=== PATIENT | female | born 1955 | race African-American/Black ===

== ENCOUNTER 2017-02-25 09:22 | Inpatient (IN) | payer MEDICAID ==
[~2017-02-25] VITALS: Ht 152.4 cm; Wt 105.9 kg
[~2017-02-25 09:22] MED LIST: ATOR20TA PO; FLUT0.0535 NAS; GABA-497 PO; GEMF600T3 PO; HYDR-2601 PO; LORA-352 PO; NEOM1SOL13 OT; OMEP20TA85 PO; ONDA4TAB5 PO; PREDSUS OR
[2017-02-25] MEDS ORDERED: IPRATROPIUM BROM 0.5 MG/2.5ML INH SOL HHN ONE (10:30)
[2017-02-25] MEDS ORDERED: LEVOFLOXACIN 500MG 100 ML IV ONE (10:30)
[2017-02-25] MEDS ORDERED: methylPREDNISolone SOD SUCC 125 MG/2 ML VL IV ONE (10:30)
[2017-02-25] MEDS ORDERED: ALBUTEROL SULF 2.5 MG/0.5ML(0.5%) NEB SOLN HHN ONE (10:30)
[2017-02-25 12:28] LABS: Anion Gap 7 (5-15); Blood Urea Nitrogen 15 mg/dL (7-18); Carbon Dioxide 25 mmol/L (21-32); Chloride 108 mmol/L (98-107); Glucose 95 mg/dL (74-106); Sodium 140 mmol/L (136-145)
[2017-02-25 12:29] LABS: Albumin 3.3 g/dL (3.4-5.0); Alkaline Phosphatase 95 U/L (45-117); Aspartate Aminotransferase 10 U/L (15-37); BUN/Creatinine Ratio 14.7; Bilirubin, Total 0.4 mg/dL (0.2-1.0); Calcium 8.5 mg/dL (8.5-10.1); GFR African American 71 mL/min; GFR Non-African American 59 mL/min; Magnesium 2.3 mg/dL (1.6-2.6); Total Protein 7.3 g/dL (6.4-8.2)
[2017-02-25 12:30] LABS: B-Type Natriuretic Peptide 226.67 pg/mL (0-100)
[2017-02-25] MEDS ORDERED: ACETAMINOPHEN 325 MG TAB PO ONE (12:30)
[2017-02-25 12:31] LABS: Temperature: 21.9 C (20.0-25.0)
[2017-02-25 12:33] LABS: Basophils % (auto) 0.3 % (0.0-2.0); Lymphocytes % (auto) 9.4 % (10.0-50.0); Monocytes % (auto) 6.2 % (0.0-12.0); Neutrophils % (auto) 84.1 % (37.0-80.0); White Blood Cell 26.9 10^3/uL (4.4-10.8)
[2017-02-25 12:34] LABS: Basophils # (auto) 0.1 uL; Eosinophils # (auto) 0 uL; Lymphocytes # (auto) 2.5 uL; Monocytes # (auto) 1.7 uL; Neutrophils # (auto) 22.6 uL
[2017-02-25 12:35] LABS: Hematocrit 38.8 % (36.0-46.0); Hemoglobin 12.8 g/dL (12.2-16.2); Mean Corpuscular Hemoglobin 31.1 pg (28.0-32.0); Mean Corpuscular Volume 94.1 fL (80.0-100.0); Mean Platelet Volume 9.5 fL (6.9-10.8); Platelet Count (auto) 215 10^3/uL (140-450); Red Cell Distribution Width 14.9 % (11.8-14.3)
[2017-02-25] MEDS ORDERED: IOHEXOL 350 MG/ML 100ML IJ ONE (13:12)
[2017-02-25] MEDS ORDERED: MORPHINE SULF INJ 2 MG/ML SYRINGE 1ML IV PRN (13:15)
[2017-02-25] MEDS ORDERED: ACETAMINOPHEN 500 MG TAB PO PRN (13:15)
[2017-02-25] MEDS ORDERED: ALBUTEROL SULF 2.5 MG/0.5ML(0.5%) NEB SOLN NEB PRN (13:15)
[2017-02-25] MEDS ORDERED: VANCOMYCIN PER PHARMACY 0 MG IV SCH (13:15)
[2017-02-25] MEDS ORDERED: NITROGLYCERIN 0.4 MG SL TAB SL PRN (13:15)
[2017-02-25] MEDS ORDERED: LORazepam 0.5 MG TAB PO PRN (13:15)
[2017-02-25 13:29] VITALS: BP 125/77
[2017-02-25] MEDS ORDERED: VANCOMYCIN 1GM/250ML 250 ML IV ONE (14:00)
[2017-02-25] MEDS: SODIUM CHLORIDE 0.9% 1,000 ML IV SCH (14:38)
[2017-02-25] MEDS: METOPROLOL TARTRATE 25 MG TAB PO SCH ×2 (14:41→22:00)
[2017-02-25] MEDS: ENOXAPARIN SOD 40 MG/0.4 ML SYRINGE SC SCH (14:42)
[2017-02-25] MEDS: ASPirin 81 mg TAB PO SCH (14:42)
[2017-02-25] MEDS: PROMETHAZINE HCL 25 MG/ML 1ML IV PRN (14:56)
[2017-02-25] MEDS ORDERED: methylPREDNISolone SOD SUCC 40 MG/ML VL IV SCH (16:00)
[2017-02-25] MEDS ORDERED: ERTAPENEM SOD INJ 1 GM in SODIUM CHL 0.9% 50 ML IV ONE (16:30)
[2017-02-25] MEDS ORDERED: AZITHROMYCIN 500MG/ 250ML 250 ML IV ONE (16:30)
[2017-02-25 17:09] LABS: Urine Bilirubin Negative (Negative); Urine Blood 3+ /uL (Negative); Urine Color Yellow (Yellow); Urine Glucose Normal (Normal); Urine Ketone Negative (Negative); Urine Nitrite POSITIVE (Negative); Urine RBC 40 /hpf (0 - 4); Urine Urobilinogen Normal (Negative); Urine pH 5.5 (5.0-8.0)
[2017-02-25] MEDS: IPRATROPIUM BROM 0.5 MG/2.5ML INH SOL NEB SCH (18:55)
[2017-02-25] MEDS: ALBUTEROL SULF 2.5 MG/0.5ML(0.5%) NEB SOLN NEB SCH (18:55)
[2017-02-25 20:20] VITALS: BP 132/80
[2017-02-25 20:56] LABS: Allen Test Modified; Base Excess -3.4 mmol/L (-2.0-2.0); Blood 02Sat 94.9 % (96-100); Blood COHb 0.3 % (0.5-1.5); Blood MetHb 0.3 % (0.0-1.5); HCO3 22.4 mmol/L (22-26.0); HHb 5.1 % (0.0-5.0); MODE NASAL CANNULA; O2Hb 94.3 % (94.0-97.0); PO2 82.8 mmHg (80.0-100.0); PO2(T) 82.8 mmHg (80.0-100.0); Room 1020-ERT; Sample Type Arterial; pH 7.334 (7.350-7.450)
[2017-02-25] MEDS: ATORVASTATIN 20 MG TAB PO SCH (23:10)
[2017-02-26] VITALS: BP 141/88
[2017-02-26] MEDS: ALBUTEROL SULF 2.5 MG/0.5ML(0.5%) NEB SOLN NEB SCH ×4 (00:40→19:00)
[2017-02-26] MEDS: IPRATROPIUM BROM 0.5 MG/2.5ML INH SOL NEB SCH ×4 (00:40→19:00)
[2017-02-26] MEDS: VANCOMYCIN 1GM/250ML 250 ML IV SCH ×2 (02:00→14:42)
[2017-02-26] MEDS: SODIUM CHLORIDE 0.9% 1,000 ML IV SCH ×2 (02:34→14:42)
[2017-02-26 04:00] VITALS: BP 138/80
[2017-02-26 05:22] LABS: Basophils # (auto) 0.1 uL; Basophils % (auto) 0.3 % (0.0-2.0); Eosinophils # (auto) 0 uL; Eosinophils % (auto) 0.1 % (0.0-7.0); Hematocrit 37.9 % (36.0-46.0); Hemoglobin 12.6 g/dL (12.2-16.2); Lymphocytes # (auto) 1.1 uL; Mean Corpuscular Hemoglobin 31.2 pg (28.0-32.0); Mean Corpuscular Hgb Conc. 33.1 g/dL (32.0-36.0); Mean Corpuscular Volume 94.1 fL (80.0-100.0); Mean Platelet Volume 8.1 fL (6.9-10.8); Monocytes % (auto) 3.8 % (0.0-12.0); Neutrophils # (auto) 25.2 uL; Neutrophils % (auto) 91.8 % (37.0-80.0); Nucleated Red Blood Cells % 0.2 %; Platelet Count (auto) 210 10^3/uL (140-450); Red Cell Distribution Width 15.4 % (11.8-14.3); White Blood Cell 27.4 10^3/uL (4.4-10.8)
[2017-02-26 05:49] LABS: Albumin 2.9 g/dL (3.4-5.0); Alkaline Phosphatase 91 U/L (45-117); Anion Gap 7 (5-15); Aspartate Aminotransferase 5 U/L (15-37); BUN/Creatinine Ratio 15.3; Bilirubin, Total 0.2 mg/dL (0.2-1.0); Blood Urea Nitrogen 15 mg/dL (7-18); Calcium 8.9 mg/dL (8.5-10.1); Carbon Dioxide 25 mmol/L (21-32); Chloride 106 mmol/L (98-107); Cholesterol 202 mg/dL (< 200); GFR African American 75 mL/min; GFR Non-African American 62 mL/min; Glucose 159 mg/dL (74-106); HDL Cholesterol 62 mg/dL (40-59); LDL Cholesterol 120 mg/dL (< 100); Potassium 3.8 mmol/L (3.5-5.1); Sodium 138 mmol/L (136-145); Total Protein 7.4 g/dL (6.4-8.2); Triglycerides 115 mg/dL (< 150)
[2017-02-26 08:00] VITALS: BP 142/82
[2017-02-26] MEDS ORDERED: LEVOFLOXACIN 500MG 100 ML IV SCH (10:00)
[2017-02-26] MEDS: ASPirin 81 mg TAB PO SCH (10:50)
[2017-02-26] MEDS: ERTAPENEM SOD INJ 1 GM in SODIUM CHL 0.9% 50 ML IV SCH (10:50)
[2017-02-26] MEDS: PANTOPRAZOLE 40 MG TAB PO SCH (10:51)
[2017-02-26] MEDS: METOPROLOL TARTRATE 25 MG TAB PO SCH ×2 (10:51→21:53)
[2017-02-26] MEDS: AZITHROMYCIN 500MG/ 250ML 250 ML IV SCH (10:52)
[2017-02-26] MEDS: ENOXAPARIN SOD 40 MG/0.4 ML SYRINGE SC SCH (10:52)
[2017-02-26 12:00] VITALS: BP 138/72
[2017-02-26 16:00] VITALS: BP 138/79
[2017-02-26] MEDS: PROMETHAZINE W/CODEINE 5 ML ORAL SYRUP PO PRN (18:01)
[2017-02-26 19:57] VITALS: BP 143/73
[2017-02-26] MEDS: ATORVASTATIN 20 MG TAB PO SCH (21:53)
[2017-02-27] VITALS (7 sets, daily range): BP systolic 125–154; BP diastolic 65–85
[2017-02-27] MEDS: ALBUTEROL SULF 2.5 MG/0.5ML(0.5%) NEB SOLN NEB SCH ×4 (00:16→20:07)
[2017-02-27] MEDS: IPRATROPIUM BROM 0.5 MG/2.5ML INH SOL NEB SCH ×4 (00:16→20:07)
[2017-02-27] MEDS: PROMETHAZINE W/CODEINE 5 ML ORAL SYRUP PO PRN ×4 (01:08→22:31)
[2017-02-27] MEDS: VANCOMYCIN 1GM/250ML 250 ML IV SCH ×2 (03:55→15:39)
[2017-02-27] MEDS: SODIUM CHLORIDE 0.9% 1,000 ML IV SCH ×2 (05:12→15:39)
[2017-02-27] MEDS: PROMETHAZINE HCL 25 MG/ML 1ML IV PRN (08:30)
[2017-02-27 08:45] LABS: Basophils # (auto) 0.2 uL; Basophils % (auto) 1.1 % (0.0-2.0); Eosinophils # (auto) 0.1 uL; Eosinophils % (auto) 0.9 % (0.0-7.0); Hematocrit 38.4 % (36.0-46.0); Hemoglobin 12.7 g/dL (12.2-16.2); Lymphocytes # (auto) 1.6 uL; Lymphocytes % (auto) 9.6 % (10.0-50.0); Mean Corpuscular Hemoglobin 31.1 pg (28.0-32.0); Mean Corpuscular Volume 94.1 fL (80.0-100.0); Mean Platelet Volume 8.8 fL (6.9-10.8); Monocytes # (auto) 0.7 uL; Monocytes % (auto) 4.4 % (0.0-12.0); Neutrophils # (auto) 13.9 uL; Nucleated Red Blood Cells % 0.1 %; Platelet Count (auto) 244 10^3/uL (140-450); Red Cell Distribution Width 15.5 % (11.8-14.3); White Blood Cell 16.5 10^3/uL (4.4-10.8)
[2017-02-27 08:59] LABS: BUN/Creatinine Ratio 23.5; Calcium 8.9 mg/dL (8.5-10.1)
[2017-02-27 09:02] LABS: Bilirubin, Total 0.2 mg/dL (0.2-1.0); Total Protein 6.9 g/dL (6.4-8.2)
[2017-02-27] MEDS: ERTAPENEM SOD INJ 1 GM in SODIUM CHL 0.9% 50 ML IV SCH (10:23)
[2017-02-27] MEDS: ENOXAPARIN SOD 40 MG/0.4 ML SYRINGE SC SCH (10:24)
[2017-02-27] MEDS: PANTOPRAZOLE 40 MG TAB PO SCH (10:24)
[2017-02-27] MEDS: ASPirin 81 mg TAB PO SCH (10:24)
[2017-02-27] MEDS: METOPROLOL TARTRATE 25 MG TAB PO SCH ×2 (10:25→22:27)
[2017-02-27] MEDS: AZITHROMYCIN 500MG/ 250ML 250 ML IV SCH (11:00)
[2017-02-27] MEDS: ATORVASTATIN 20 MG TAB PO SCH (22:09)
[2017-02-28] MEDS: IPRATROPIUM BROM 0.5 MG/2.5ML INH SOL NEB SCH ×4 (00:24→18:00)
[2017-02-28] MEDS: ALBUTEROL SULF 2.5 MG/0.5ML(0.5%) NEB SOLN NEB SCH ×4 (00:24→18:00)
[2017-02-28 03:52] VITALS: BP 143/78
[2017-02-28] MEDS: VANCOMYCIN 1GM/250ML 250 ML IV SCH ×2 (04:03→16:06)
[2017-02-28 05:17] LABS: Basophils # (auto) 0.1 uL; Basophils % (auto) 0.7 % (0.0-2.0); Eosinophils # (auto) 0.3 uL; Eosinophils % (auto) 2.5 % (0.0-7.0); Hematocrit 37.4 % (36.0-46.0); Hemoglobin 12.2 g/dL (12.2-16.2); Lymphocytes # (auto) 2.6 uL; Lymphocytes % (auto) 21.3 % (10.0-50.0); Mean Corpuscular Hemoglobin 30.8 pg (28.0-32.0); Mean Corpuscular Hgb Conc. 32.6 g/dL (32.0-36.0); Mean Corpuscular Volume 94.6 fL (80.0-100.0); Mean Platelet Volume 8.4 fL (6.9-10.8); Monocytes # (auto) 0.9 uL; Neutrophils # (auto) 8.4 uL; Neutrophils % (auto) 68.5 % (37.0-80.0); Nucleated Red Blood Cells % 0.3 %; Platelet Count (auto) 234 10^3/uL (140-450); Red Cell Distribution Width 15.7 % (11.8-14.3); White Blood Cell 12.2 10^3/uL (4.4-10.8)
[2017-02-28 05:49] LABS: Potassium 4.3 mmol/L (3.5-5.1)
[2017-02-28 05:53] LABS: Albumin 2.7 g/dL (3.4-5.0); BUN/Creatinine Ratio 21.9; Calcium 8.5 mg/dL (8.5-10.1)
[2017-02-28 05:55] LABS: Bilirubin, Total 0.2 mg/dL (0.2-1.0); Total Protein 6.4 g/dL (6.4-8.2)
[2017-02-28 08:00] VITALS: BP 155/61
[2017-02-28] MEDS: ERTAPENEM SOD INJ 1 GM in SODIUM CHL 0.9% 50 ML IV SCH (10:10)
[2017-02-28] MEDS: ASPirin 81 mg TAB PO SCH (10:12)
[2017-02-28] MEDS: PANTOPRAZOLE 40 MG TAB PO SCH (10:12)
[2017-02-28] MEDS: ENOXAPARIN SOD 40 MG/0.4 ML SYRINGE SC SCH (10:13)
[2017-02-28] MEDS: METOPROLOL TARTRATE 25 MG TAB PO SCH ×2 (10:13→20:58)
[2017-02-28] MEDS: PROMETHAZINE W/CODEINE 5 ML ORAL SYRUP PO PRN ×2 (10:18→21:00)
[2017-02-28] MEDS: AZITHROMYCIN 500MG/ 250ML 250 ML IV SCH (11:28)
[2017-02-28 11:49] VITALS: BP 123/65
[2017-02-28 15:51] VITALS: BP 123/65
[2017-02-28 16:03] VITALS: BP 157/89
[2017-02-28] MEDS ORDERED: CARI-277 PO (17:38)
[2017-02-28] MEDS ORDERED: LORA-622 PO (17:38)
[2017-02-28] MEDS ORDERED: CHOL20009 PO (17:38)
[2017-02-28] MEDS ORDERED: CHOL500021 OR (17:38)
[2017-02-28 19:50] VITALS: BP 147/72
[2017-02-28] MEDS: ATORVASTATIN 20 MG TAB PO SCH (20:59)
[2017-02-28] MEDS: TEMAZEPAM 15 MG CAP PO PRN (21:00)
[2017-03-01] VITALS: BP 168/93
[2017-03-01] MEDS: ALBUTEROL SULF 2.5 MG/0.5ML(0.5%) NEB SOLN NEB SCH ×5 (01:12→23:47)
[2017-03-01] MEDS: IPRATROPIUM BROM 0.5 MG/2.5ML INH SOL NEB SCH ×5 (01:12→23:47)
[2017-03-01 02:00] VITALS: BP 152/80
[2017-03-01] MEDS: VANCOMYCIN 1GM/250ML 250 ML IV SCH (04:00)
[2017-03-01 05:40] LABS: Basophils # (auto) 0.1 uL; Basophils % (auto) 1.1 % (0.0-2.0); Eosinophils # (auto) 0.3 uL; Eosinophils % (auto) 2.6 % (0.0-7.0); Hematocrit 37.7 % (36.0-46.0); Hemoglobin 12.7 g/dL (12.2-16.2); Lymphocytes # (auto) 2.1 uL; Lymphocytes % (auto) 20.4 % (10.0-50.0); Mean Corpuscular Hemoglobin 31.6 pg (28.0-32.0); Mean Corpuscular Hgb Conc. 33.8 g/dL (32.0-36.0); Mean Corpuscular Volume 93.4 fL (80.0-100.0); Mean Platelet Volume 7.7 fL (6.9-10.8); Monocytes # (auto) 0.7 uL; Monocytes % (auto) 6.8 % (0.0-12.0); Neutrophils % (auto) 69.1 % (37.0-80.0); Nucleated Red Blood Cells % 0.3 %; Platelet Count (auto) 261 10^3/uL (140-450); Red Cell Distribution Width 14.7 % (11.8-14.3); White Blood Cell 10.1 10^3/uL (4.4-10.8)
[2017-03-01 06:03] LABS: Calcium 8.5 mg/dL (8.5-10.1)
[2017-03-01] MEDS: PROMETHAZINE W/CODEINE 5 ML ORAL SYRUP PO PRN ×3 (07:03→22:09)
[2017-03-01] MEDS: ERTAPENEM SOD INJ 1 GM in SODIUM CHL 0.9% 50 ML IV SCH (09:44)
[2017-03-01] MEDS: PANTOPRAZOLE 40 MG TAB PO SCH (09:46)
[2017-03-01] MEDS: ASPirin 81 mg TAB PO SCH (09:46)
[2017-03-01] MEDS: METOPROLOL TARTRATE 25 MG TAB PO SCH ×2 (09:47→21:28)
[2017-03-01] MEDS: ENOXAPARIN SOD 40 MG/0.4 ML SYRINGE SC SCH (09:48)
[2017-03-01] MEDS: AZITHROMYCIN 500MG/ 250ML 250 ML IV SCH (11:10)
[2017-03-01] MEDS: SODIUM CHLORIDE 0.9% 1,000 ML IV SCH ×3 (11:14→21:29)
[2017-03-01 12:00] VITALS: BP 158/93
[2017-03-01 16:40] VITALS: BP 159/86
[2017-03-01] MEDS: MORPHINE SULF INJ 2 MG/ML SYRINGE 1ML IV PRN (17:44)
[2017-03-01 21:14] VITALS: BP 145/57
[2017-03-01] MEDS: ATORVASTATIN 20 MG TAB PO SCH (21:27)
[2017-03-01] MEDS: TEMAZEPAM 15 MG CAP PO PRN (22:09)
[2017-03-01] MEDS ORDERED: HYDROcodone-ACET 5/325MG TAB PO PRN (23:30)
[2017-03-02] MEDS: MORPHINE SULF INJ 2 MG/ML SYRINGE 1ML IV PRN ×2 (02:00→21:01)
[2017-03-02 05:26] VITALS: BP 155/84
[2017-03-02] MEDS: GABAPENTIN 300 MG CAP PO SCH ×3 (06:16→21:01)
[2017-03-02] MEDS: CARISOPRODOL 350 MG TAB PO SCH ×3 (06:16→21:02)
[2017-03-02] MEDS: PROMETHAZINE HCL 25 MG/ML 1ML IV PRN (06:51)
[2017-03-02] MEDS: HYDROcodone-ACET 5/325MG TAB PO PRN ×2 (06:52→14:27)
[2017-03-02] MEDS: ALBUTEROL SULF 2.5 MG/0.5ML(0.5%) NEB SOLN NEB SCH ×3 (07:12→19:03)
[2017-03-02] MEDS: IPRATROPIUM BROM 0.5 MG/2.5ML INH SOL NEB SCH ×3 (07:12→19:03)
[2017-03-02 07:50] VITALS: BP 143/66
[2017-03-02] MEDS: cefTRIAXone 1GM/50ML D5W 50 ML IV SCH (09:00)
[2017-03-02] MEDS: ASPirin 81 mg TAB PO SCH (10:00)
[2017-03-02] MEDS: AZITHROMYCIN 250 MG TAB PO SCH (10:00)
[2017-03-02] MEDS: CHOLECALCIFEROL (VITD3) 1,000 UNIT TAB PO SCH (10:00)
[2017-03-02] MEDS: PANTOPRAZOLE 40 MG TAB PO SCH (10:00)
[2017-03-02] MEDS: FAMOTIDINE 20 MG TAB PO SCH (10:00)
[2017-03-02] MEDS: ENOXAPARIN SOD 40 MG/0.4 ML SYRINGE SC SCH (10:00)
[2017-03-02] MEDS: LORATADINE 10 MG TAB PO SCH (10:00)
[2017-03-02] MEDS: METOPROLOL TARTRATE 25 MG TAB PO SCH ×2 (10:00→21:02)
[2017-03-02 12:29] VITALS: BP 152/79
[2017-03-02] MEDS: SODIUM CHLORIDE 0.9% 1,000 ML IV SCH (13:12)
[2017-03-02 15:00] LABS: INR 1.04 (0.9-1.15); Partial Thromboplastin Time 33.1 sec (22.64-33.71); Prothrombin Time 11.3 sec (9.37-12.3)
[2017-03-02 16:51] VITALS: BP 140/74
[2017-03-02] MEDS: ATORVASTATIN 20 MG TAB PO SCH (21:01)
[2017-03-02] MEDS: PROMETHAZINE W/CODEINE 5 ML ORAL SYRUP PO PRN (21:01)
[2017-03-02 22:00] VITALS: BP 147/79
[2017-03-03] MEDS: ALBUTEROL SULF 2.5 MG/0.5ML(0.5%) NEB SOLN NEB SCH ×5 (00:30→23:35)
[2017-03-03] MEDS: IPRATROPIUM BROM 0.5 MG/2.5ML INH SOL NEB SCH ×5 (00:30→23:35)
[2017-03-03] MEDS: SODIUM CHLORIDE 0.9% 1,000 ML IV SCH ×2 (04:29→15:42)
[2017-03-03 05:00] VITALS: BP 161/85
[2017-03-03] MEDS: GABAPENTIN 300 MG CAP PO SCH ×3 (05:10→22:33)
[2017-03-03] MEDS: CARISOPRODOL 350 MG TAB PO SCH ×3 (05:11→22:33)
[2017-03-03 07:37] VITALS: BP 149/79
[2017-03-03] MEDS ORDERED: CLINDAMYCIN 600MG IV 50 ML IV ONE (08:13)
[2017-03-03] MEDS ORDERED: IOHEXOL 300 MG/ML 100ML BOTTLE IJ ONE (08:19)
[2017-03-03] MEDS: cefTRIAXone 1GM/50ML D5W 50 ML IV SCH (09:32)
[2017-03-03] MEDS: ASPirin 81 mg TAB PO SCH (09:34)
[2017-03-03] MEDS: AZITHROMYCIN 250 MG TAB PO SCH (09:35)
[2017-03-03] MEDS: LORATADINE 10 MG TAB PO SCH (09:35)
[2017-03-03] MEDS: PANTOPRAZOLE 40 MG TAB PO SCH (09:35)
[2017-03-03] MEDS: ENOXAPARIN SOD 40 MG/0.4 ML SYRINGE SC SCH (09:36)
[2017-03-03] MEDS: CHOLECALCIFEROL (VITD3) 1,000 UNIT TAB PO SCH (09:36)
[2017-03-03] MEDS: METOPROLOL TARTRATE 25 MG TAB PO SCH ×2 (09:37→22:32)
[2017-03-03] MEDS: FAMOTIDINE 20 MG TAB PO SCH (09:38)
[2017-03-03] MEDS: HYDROcodone-ACET 5/325MG TAB PO PRN ×2 (09:44→19:03)
[2017-03-03] MEDS: PROMETHAZINE W/CODEINE 5 ML ORAL SYRUP PO PRN (11:50)
[2017-03-03 12:23] VITALS: BP 157/93
[2017-03-03 16:42] VITALS: BP 153/76
[2017-03-03 21:41] VITALS: BP 153/76
[2017-03-03 22:00] VITALS: BP 164/81
[2017-03-03] MEDS: ATORVASTATIN 20 MG TAB PO SCH (22:32)
[2017-03-03] MEDS: MORPHINE SULF INJ 2 MG/ML SYRINGE 1ML IV PRN (22:33)
[2017-03-04] MEDS: TEMAZEPAM 15 MG CAP PO PRN (00:17)
[2017-03-04] MEDS: SODIUM CHLORIDE 0.9% 1,000 ML IV SCH ×2 (04:33→18:57)
[2017-03-04 05:00] VITALS: BP 158/79
[2017-03-04] MEDS: CARISOPRODOL 350 MG TAB PO SCH ×3 (06:29→22:04)
[2017-03-04] MEDS: GABAPENTIN 300 MG CAP PO SCH ×3 (06:29→22:03)
[2017-03-04] MEDS: ALBUTEROL SULF 2.5 MG/0.5ML(0.5%) NEB SOLN NEB SCH ×3 (06:31→19:22)
[2017-03-04] MEDS: IPRATROPIUM BROM 0.5 MG/2.5ML INH SOL NEB SCH ×3 (06:31→19:22)
[2017-03-04 09:00] VITALS: BP 114/76
[2017-03-04] MEDS: MORPHINE SULF INJ 2 MG/ML SYRINGE 1ML IV PRN ×3 (09:37→22:07)
[2017-03-04] MEDS: cefTRIAXone 1GM/50ML D5W 50 ML IV SCH (09:38)
[2017-03-04] MEDS: ENOXAPARIN SOD 40 MG/0.4 ML SYRINGE SC SCH (10:00)
[2017-03-04] MEDS: CHOLECALCIFEROL (VITD3) 1,000 UNIT TAB PO SCH (11:01)
[2017-03-04] MEDS: AZITHROMYCIN 250 MG TAB PO SCH (11:03)
[2017-03-04] MEDS: PANTOPRAZOLE 40 MG TAB PO SCH (11:04)
[2017-03-04] MEDS: METOPROLOL TARTRATE 25 MG TAB PO SCH ×2 (11:05→22:03)
[2017-03-04] MEDS: LORATADINE 10 MG TAB PO SCH (11:06)
[2017-03-04] MEDS: FAMOTIDINE 20 MG TAB PO SCH (11:07)
[2017-03-04] MEDS: ASPirin 81 mg TAB PO SCH (11:32)
[2017-03-04] MEDS: HYDROcodone-ACET 5/325MG TAB PO PRN (11:33)
[2017-03-04 13:00] VITALS: BP 148/80
[2017-03-04] MEDS: PROMETHAZINE W/CODEINE 5 ML ORAL SYRUP PO PRN ×2 (14:00→18:58)
[2017-03-04 17:00] VITALS: BP 157/6
[2017-03-04 22:00] VITALS: BP 173/95
[2017-03-04] MEDS: ATORVASTATIN 20 MG TAB PO SCH (22:03)
[2017-03-05] MEDS: TEMAZEPAM 15 MG CAP PO PRN (01:02)
[2017-03-05] MEDS: PROMETHAZINE W/CODEINE 5 ML ORAL SYRUP PO PRN (01:20)
[2017-03-05 05:03] VITALS: BP 154/78
[2017-03-05] MEDS: GABAPENTIN 300 MG CAP PO SCH ×2 (06:04→14:10)
[2017-03-05] MEDS: CARISOPRODOL 350 MG TAB PO SCH ×2 (06:05→14:10)
[2017-03-05 06:08] LABS: Basophils # (auto) 0.1 uL; Basophils % (auto) 1.1 % (0.0-2.0); Eosinophils # (auto) 0.3 uL; Eosinophils % (auto) 3.1 % (0.0-7.0); Hematocrit 38.1 % (36.0-46.0); Hemoglobin 12.8 g/dL (12.2-16.2); Lymphocytes # (auto) 1.9 uL; Lymphocytes % (auto) 22.1 % (10.0-50.0); Mean Corpuscular Hemoglobin 31.3 pg (28.0-32.0); Mean Corpuscular Hgb Conc. 33.5 g/dL (32.0-36.0); Mean Corpuscular Volume 93.4 fL (80.0-100.0); Mean Platelet Volume 8.4 fL (6.9-10.8); Monocytes # (auto) 0.7 uL; Monocytes % (auto) 8.3 % (0.0-12.0); Neutrophils # (auto) 5.5 uL; Neutrophils % (auto) 65.4 % (37.0-80.0); Nucleated Red Blood Cells % 0.2 %; Platelet Count (auto) 327 10^3/uL (140-450); Red Cell Distribution Width 14.8 % (11.8-14.3); White Blood Cell 8.4 10^3/uL (4.4-10.8)
[2017-03-05] MEDS: ALBUTEROL SULF 2.5 MG/0.5ML(0.5%) NEB SOLN NEB SCH ×3 (06:09→12:06)
[2017-03-05] MEDS: IPRATROPIUM BROM 0.5 MG/2.5ML INH SOL NEB SCH ×3 (06:09→12:06)
[2017-03-05 06:36] LABS: Albumin 3.2 g/dL (3.4-5.0); BUN/Creatinine Ratio 17.3; Calcium 8.4 mg/dL (8.5-10.1)
[2017-03-05 06:38] LABS: Bilirubin, Total 0.2 mg/dL (0.2-1.0); Total Protein 7.1 g/dL (6.4-8.2)
[2017-03-05] MEDS: CHOLECALCIFEROL (VITD3) 1,000 UNIT TAB PO SCH (08:51)
[2017-03-05] MEDS: AZITHROMYCIN 250 MG TAB PO SCH (08:51)
[2017-03-05] MEDS: PANTOPRAZOLE 40 MG TAB PO SCH (08:51)
[2017-03-05] MEDS: FAMOTIDINE 20 MG TAB PO SCH (08:51)
[2017-03-05] MEDS: LORATADINE 10 MG TAB PO SCH (08:52)
[2017-03-05] MEDS: cefTRIAXone 1GM/50ML D5W 50 ML IV SCH (08:52)
[2017-03-05] MEDS: ASPirin 81 mg TAB PO SCH (08:52)
[2017-03-05] MEDS: METOPROLOL TARTRATE 25 MG TAB PO SCH (08:52)
[2017-03-05] MEDS: SODIUM CHLORIDE 0.9% 1,000 ML IV SCH (08:53)
[2017-03-05] MEDS: ENOXAPARIN SOD 40 MG/0.4 ML SYRINGE SC SCH (08:53)
[2017-03-05 09:11] VITALS: BP 160/82
[2017-03-05 10:52] VITALS: BP 170/88
[2017-03-05 13:18] VITALS: BP 157/80
== END 2017-03-05 14:40 | disposition home or self-care (01) | DRG 140 ==
LOC: EDBD 09:22 → ER 09:22 → TELE 09:23 → DOU IN ICU 22:10 → TELE-EAST 03-01 16:17 → EAST 03-05 02:41
PROVIDERS: ADMIT Internal Medicine; ATTEND Internal Medicine
DX: J44.0 Chronic obstructive pulmonary disease with (acute) lower respiratory infection (principal); J18.9 Pneumonia, unspecified organism; I11.0 Hypertensive heart disease with heart failure; I50.9 Heart failure, unspecified; K76.0 Fatty (change of) liver, not elsewhere classified; Z68.41 Body mass index [BMI] 40.0-44.9, adult; N20.0 Calculus of kidney; J45.909 Unspecified asthma, uncomplicated; E66.01 Morbid (severe) obesity due to excess calories; Z87.442 Personal history of urinary calculi; I25.2 Old myocardial infarction; Z87.11 Personal history of peptic ulcer disease; Z83.3 Family history of diabetes mellitus; Z82.0 Family history of epilepsy and other diseases of the nervous system; Z80.3 Family history of malignant neoplasm of breast; Z82.49 Family history of ischemic heart disease and other diseases of the circulatory system; Z86.73 Personal history of transient ischemic attack (TIA), and cerebral infarction without residual deficits; Z90.89 Acquired absence of other organs; Z87.891 Personal history of nicotine dependence; Z88.0 Allergy status to penicillin; Z79.899 Other long term (current) drug therapy
CPT/HCPCS: 36415; 36600; 70450; 71010; 71020; 71275; 74000; 74176; 76775; 80048; 80053; 80061; 80202; 80307; 81001; 82550; 82805; 82962; 83605; 83735; 83880; 84484; 85025; 85379; 85610; 85652; 85730; 86141; 87040; 87070; 87081; 87086; 87205; 87400; 93005; 94640; 94644; 94761; 96365; 96367; 96372; 96375; 97110; 97116; 97163; 97530; J0696; J1335; J1956; J3490

== ENCOUNTER 2024-09-28 11:25 | Inpatient (IN) | payer MEDICARE, MEDICAID ==
[~2024-09-28] VITALS: Ht 170.2 cm; Wt 99.4 kg
[~2024-09-28 11:25] MED LIST changes: -ATOR20TA PO; +CARI-277 PO; +CHOL20009 PO; +CHOL500021 OR; +FLUT0.05 NAS; -FLUT0.0535 NAS; +GABA-1250 PO; -GABA-497 PO; -GEMF600T3 PO; -LORA-352 PO; +LORA-622 PO; +LORA10TA6 PO; +ONDA-144 PO; -ONDA4TAB5 PO
--- NOTE | 2024-09-28 11:36 | ED.PDOC ---
Back pain HPI HPI Comments 69 y/o F, BIBA, with PMHx of urolithiasis, HTN, TX, CVA, and PUD presents to the ED for CC of back pain. Patient states, she has been experiencing lower lumbar back pain x4days, with associated symptoms of dysuria, burning upon urination, and melena. Patient reports, similar symptoms in the past when she had an obstructing kidney stone. Patient denies fever, chills, hematuria, nausea, vomiting, or headache. No other symptoms or modifying factors present at this time. Time Seen by MD: 11:35 Primary Care Provider: JOVANY Reviewed Notes: Nurses Notes, Matte Cutter Notes, Medications, Allergies Allergies: Coded Allergies: Penicillins (Verified Allergy, Unknown, 11/08/15) Home Meds Reported Medications Loratadine (Claritin) 10 Mg Tab, 1 TAB PO DAILY, #30 TAB 5 Refills 02/28/17 Cholecalciferol (VITAMIN D) 5,000 Unit Tab, 5000 UNIT OR DAILY, TAB 02/28/17 Cholecalciferol (VITAMIN D) 2,000 Unit Tab, 2000 UNIT PO DAILY, TAB 02/28/17 Carisoprodol (Soma) 350 Mg Tab, 350 MG PO TID, TAB 02/28/17 Hydrocodone-Acetaminophen (Hydrocodone/Acetaminophen) 1 Tab Tab, 1 TAB PO QID, #120 TAB 11/09/15 Gykljvlu-Kyeazoyfa-Qk (Otic) (Antibiotic Ear) 1 % Ivonne, OT 11/09/15 Gabapentin (Gabapentin) 300 Mg Cap, 1 CAP PO TID, #90 CAP 5 Refills 11/09/15 Omeprazole (HM OMEPRAZOLE) 20 Mg Tab, 40 MG PO DAILY, TAB 11/09/15 Ondansetron (Zofran) 4 Mg Tab, 4 MG PO Q8HPRN PRN for NAUSEA OR VOMITING, TAB 11/09/15 Loratadine (Loratadine) 10 Mg Tab, 10 MG PO DAILY, TAB 11/09/15 Prednisolone Acetate (DARLIN-PRED) Meron, 1 OR 11/09/15 Fluticasone Propionate (Fluticasone Propionate) 0.05 % Cre, 50 MCG MIRYAM for 30 Days, MCG 11/09/15 Information Source: Patient, Emergency Med Personnel Mode of Arrival: EMS Timing: Days Duration: Since onset Location of Back pain: (B) Lumbar Severity: Moderate Prehospital treatment: None Onset: Spontaneous History of: Urolithiasis Modifying Factors: Nothing Associated signs and symptoms: Dysuria Past Medical History PAST MEDICAL HISTORY: Asthma, CVA, HTN, Kidney Stones, TX, PUD Surgical History: Tonsillectomy SALES ADVISORY MANAGER History: No Pertinent SALES ADVISORY MANAGER History Family History Family History: No family hx of Cancer, No family hx of DM, No family hx of Heart mynor Family History (Other): Seizures Social History Smoker: Quit Less Than 1 Year Alcohol: Occasionally Drugs: Denies Drug Use Lives In: Home Constitutional: denies: chills, diaphoresis, fatigue, fever, malaise, sweats, weakness, others EENTM: denies: blurred vision, double vision, ear bleeding, ear discharge, ear drainage, ear pain, ear ringing, eye pain, eye redness, hearing loss, mouth pain, mouth swelling, nasal discharge, nose bleeding, nose congestion, nose pain, photophobia, tearing, throat pain, throat swelling, voice changes, others Respiratory: denies: cough, hemoptysis, orthopnea, SOB at rest, shortness of b reath, SOB with excertion, stridor, wheezing, others Cardiovascular: denies: chest pain, dizzy spells, diaphoresis, Dyspnea on exertion, edema, irregular heart beat, left arm pain, lightheadedness, palpitations, PND, syncope, others Gastrointestinal: reports: melena; denies: abdomen distended, abdominal pain, blood streaked bowels, constipated, diarrhea, dysphagia, difficulty swallowing, hematemesis, nausea, poor appetite, poor fluid intake, rectal bleeding, rectal pain, vomiting, others Genitourinary: reports: burning, dysuria; denies: abnormal vagina bleeding, dyspareunia, flank pain, frequency, hematuria, incontinence, pain, , vagina discharge, urgency, others Neurological: denies: dizziness, fainting, headache, left sided numbness, left sided weakness, numbness, paresthesia, pre-existing deficit, right sided numbness, right sided weakness, seizure, speech problems, tingling, tremors, weakness, others Musculoskeletal: reports: back pain; denies: gout, joint pain, joint swelling, muscle pain, muscle stiffness, neck pain, others Integumetry: denies: bruises, change in color, change in hair/nails, dryness, laceration, lesions, lumps, rash, wounds, others Allergic/Immunocompromised: denies: Difficulty Healing, Frequent Infections, Hives, Itching, others Hematologic/Lymphatic: denies: anemia, blood clots, easy bleeding, easy bruising, swollen glands, others Endocrine: denies: excessive hunger, excessive sweating, excessive thirst, excessive urination, flushing, intolerance to cold, intolerance to heat, unexplained weight gain, unexplained weight loss, others Psychiatric: denies: anxiety, bipolar disorder, depression, hopeless, panic disorder, schizophrenia, sleepless, suicidal, others All Other Systems: Reviewed and Negative Physical Exam General Appearance: Moderate Distress HEENT: Normal ENT Inspection, Pharynx Normal, TMs Normal Neck: Full Range of Motion, Non-Tender, Normal, Normal Inspection Respiratory: Chest Non-Tender, Lungs Clear, No Accessory Muscle Use, No Respiratory Distress, Normal Breath Sounds Cardiovascular: No Edema, No JVD, No Murmur, No Gallop, Normal Peripheral Pulses, Regular Rate/Rhythm Breast Exam: Deferred Gastrointestinal: No Organomegaly, Non Tender, No Pulsatile Mass, Normal Bowel Sounds, Soft Genitalia: Deferred Pelvic: Deferred Rectal: Deferred Extremities: No calf tenderness, Normal range of motion Musculoskeletal : Apperance: Normal Neurologic: Alert Cerebellar Function: NOT DONE Reflexes: NOT DONE Skin: Normal Color Lymphatic: No Adenopathy Was a procedure done? Was a procedure done?: No Back Pain Differential Dx Differential Diagnosis: Strain, Urinary Obstruction, Urolithiasis X-Ray, Labs, Meds, VS Vital Signs Date Time Temp Pulse Resp B/P (MAP) Pulse Ox O2 Delivery O2 Flow Rate FiO2 09/28/24 13:37 98.7 83 18 126/82 (97) 97 98.7 09/28/24 13:37 83 18 97 Room Air* 0 21 09/28/24 11:40 97.9 82 18 122/83 (96) 99 97.9 Lab Test 09/28/24 13:03 Range/Units White Blood Count 8.5 4.4-10.8 10^3/uL Red Blood Count 4.39 4.0-5.20 10^6/uL Hemoglobin 13.7 12.2-16.2 g/dL Hematocrit 40.4 36.0-46.0 % Mean Corpuscular Volume 92.2 80.0-100.0 fL Mean Corpuscular Hemoglobin 31.3 28.0-32.0 pg Mean Corpuscular Hemoglobin Concent 33.9 32.0-36.0 g/dL Red Cell Distribution Width 14.6 H 11.8-14.3 % Platelet Count 227 140-450 10^3/uL Mean Platelet Volume 9.9 6.9-10.8 fL Neutrophils (%) (Auto) 63.6 37.0-80.0 % Lymphocytes (%) (Auto) 26.0 10.0-50.0 % Monocytes (%) (Auto) 7.7 0.0-12.0 % Eosinophils (%) (Auto) 1.6 0.0-7.0 % Basophils (%) (Auto) 1.1 0.0-2.0 % Neutrophils # (Auto) 5.4 1.6-8.6 10 ^3/uL Lymphocytes # (Auto) 2.2 0.4-5.4 10 ^3/uL Monocytes # (Auto) 0.7 0-1.3 10 ^3/uL Eosinophils # (Auto) 0.1 0-0.8 10 ^3/uL Basophils # (Auto) 0.1 0-0.2 10 ^3/uL Nucleated Red Blood Cells 0.2 % Sodium Level 141 136-145 mmol/L Potassium Level 4.1 3.5-5.1 mmol/L Chloride Level 108 H 98-107 mmol/L Carbon Dioxide Level 22 20-31 mmol/L Anion Gap 11 5-15 Blood Urea Nitrogen 20 9-23 mg/dL Creatinine 0.97 0.550-1.02 mg/dL Glomerular Filtration Rate Calc 64 >90 mL/min BUN/Creatinine Ratio 20.6 H 10.0-20.0 Serum Glucose 100 74-106 mg/dL Calcium Level 9.3 8.7-10.4 mg/dL Current Medications Medications (Trade) Dose Ordered Sig/Satish Route Start Time Stop Time Status Last Admin Sodium Chloride 1,000 ml @ 150 mls/hr Q6H40M ONCE IV 09/28/24 12:30 09/28/24 19:09 09/28/24 12:[address] [address] Ph: [phone] DIAGNOSTIC IMAGING Diagnostic Imaging Report : [id number] Signed PATIENT: ANJEL TRAN ACCT: [id number] UNIT: [id number] : 1955 LOC: ER ROOM / BED: / AGE / SEX: 69 / F ADM STATUS: REG ER SERVICE 1230 ORDERING PHYSICIAN: SANDHYA CRAWFORD MD PROCEDURE(s): CXRP - CHEST PORTABLE REASON: sob ORDER NUMBER(s): [id number], ACCESSION NUMBER(s): [id number] EXAM: XY CHEST PORTABLE REASON FOR EXAM: sob TECHNIQUE: 1 view of the chest COMPARISON: None FINDINGS/IMPRESSION: LUNGS: Low lung volumes with increased peripheral interstitial edema and decreased penetration likely related to overlying soft tissue . Correlate for volume overload. MEDIASTINUM: Mild cardiomegaly BONES: No acute osseous abnormality OTHER: None ATED BY: CARLOS TURNER MD DICTATED DATE/TIME: 09/28/24 1300 SIGNED BY: CARLOS TURNER MD SIGNED DATE/TIME: 09/28/24 1300 CC: Patient alert. Complaining of flank pain. Vitals stable. Answering questions. Moving all extremities. Does not ambulate well. Chest x-ray reviewed does not show any acute changes. Establish intravenous access. Was given fluids. WBC within normal limits. Hemoglobin within normal limits. Continues to have severe flank pain. CT of the abdomen. Was given Toradol. Was given Zofran. Reviewed her history. Explained to the patient. Continue monitoring. Time of 1ST Reevaluation: 12:05 Reevaluation 1ST: Unchanged Patient Education/Counseling: Diagnosis, Treatment Family Education/Counseling: No Family Present Departure 1 Departure Time of Disposition: 14:23 Impression: Primary Impression: Renal colic on right side Additional Impression: Essential hypertension Disposition: ADMITTED INPATIENT Admit to: Med Surg Condition: Guarded Critical Care Note Critical Care Time?: No Stability Stability form required: No Heart Score Heart Score: Heart Score Response (Comments) Value History N/A 0 EKG N/A 0 Age N/A 0 Risk Factors N/A 0 Troponin N/A 0 Total 0 I personally scribed for SANDHYA CRAWFORD MD ([email or web address]) on 09/28/24 at 11:36. Electronically submitted by Sita Redman ([email or web address]). I personally scribed for SANDHYA CRAWFORD MD ([email or web address]) on 09/28/24 at 12:44. Electronically submitted by Sita Redman ([email or web address]). I personally scribed for SANDHYA CRAWFORD MD ([email or web address]) on 09/28/24 at 14:01. Electronically submitted by Sita Remdan ([email or web address]). SANDHYA CRAWFORD MD September 28, 2024 11:36
[2024-09-28] MEDS: SODIUM CHLORIDE 0.9% 1,000 ML IV ONE (12:30)
--- NOTE | 2024-09-28 13:02 | DVH ---
EXAM: XY CHEST PORTABLE REASON FOR EXAM: sob TECHNIQUE: 1 view of the chest COMPARISON: None FINDINGS/IMPRESSION: LUNGS: Low lung volumes with increased peripheral interstitial edema and decreased penetration likely related to overlying soft tissue . Correlate for volume overload. MEDIASTINUM: Mild cardiomegaly BONES: No acute osseous abnormality OTHER: None
[2024-09-28 13:37] VITALS: PULSE 83; RESP 18; O2SAT 97
[2024-09-28 13:41] LABS: Basophils # (auto) 0.1 10 ^3/uL (0-0.2); Basophils % (auto) 1.1 % (0.0-2.0); Eosinophils # (auto) 0.1 10 ^3/uL (0-0.8); Eosinophils % (auto) 1.6 % (0.0-7.0); Hematocrit 40.4 % (36.0-46.0); Hemoglobin 13.7 g/dL (12.2-16.2); Lymphocytes # (auto) 2.2 10 ^3/uL (0.4-5.4); Mean Corpuscular Hemoglobin 31.3 pg (28.0-32.0); Mean Corpuscular Hgb Conc. 33.9 g/dL (32.0-36.0); Mean Corpuscular Volume 92.2 fL (80.0-100.0); Monocytes # (auto) 0.7 10 ^3/uL (0-1.3); Monocytes % (auto) 7.7 % (0.0-12.0); Neutrophils # (auto) 5.4 10 ^3/uL (1.6-8.6); Neutrophils % (auto) 63.6 % (37.0-80.0); Nucleated Red Blood Cells % 0.2 %; Platelet Count (auto) 227 10^3/uL (140-450); Red Blood Cells 4.39 10^6/uL (4.0-5.20); Red Cell Distribution Width 14.6 % (11.8-14.3); White Blood Cell 8.5 10^3/uL (4.4-10.8)
[2024-09-28 13:45] LABS: Anion Gap 11 (5-15); Carbon Dioxide 22 mmol/L (20-31); Potassium 4.1 mmol/L (3.5-5.1); Sodium 141 mmol/L (136-145)
[2024-09-28 13:46] LABS: Calcium 9.3 mg/dL (8.7-10.4)
[2024-09-28 13:48] LABS: Chloride 108 mmol/L (98-107)
[2024-09-28 13:51] LABS: BUN/Creatinine Ratio 20.6 (10.0-20.0); Blood Urea Nitrogen 20 mg/dL (9-23); Glucose 100 mg/dL (74-106)
--- NOTE | 2024-09-28 15:07 | DVH ---
EXAM: CT CT AB PEL WO CON-NO ORAL OR IV HISTORY: stone COMPARISON: None TECHNIQUE: Helical CT images of the abdomen and pelvis were performed without IV contrast. Sagittal a nd coronal reformatted images were obtained. This CT exam was performed using one or more of the foll owing dose reduction techniques: Automated exposure control, adjustment of the mA and/or kv according to patient size, or the use of iterative reconstruction techniques. Radiation Dose: Abdomen/Pelvis: CTDIvol 26.46 mGy, DLP 1204.05 mGy*cm. FINDINGS: CT abdomen: There is mild scarring or atelectasis in the lung bases. The heart is not enlarged. The l iver is diffusely fatty density. There are bilateral renal nonobstructing calculi. There is mild righ t hydronephrosis and proximal hydroureter without visualization of obstructing distal ureteral calcul i or urinary bladder calculi. There is a right renal pelvis 15 mm calculus which may be intermittentl y obstructing ( image 38, series 2). There is gas within the right renal collecting system and urinar y bladder lumen. There is right renal superior pole cortical atrophy. The noncontrast spleen, gallbla dder, pancreas, and adrenal glands are unremarkable. No abdominal aortic aneurysm. There are atherosc lerotic calcifications of the abdominal aorta and major branches. There is supraumbilical rectus madhav stasis. CT pelvis: No abnormal bowel dilatation, free air, or free fluid. There are colonic diverticula witho ut evidence of acute diverticulitis. The appendix is not dilated. There is mild right and severe left hip osteoarthritis. There is advanced lumbar degenerative disc disease and facet arthropathy with mu ltilevel significant neural foraminal stenosis bilaterally. IMPRESSION: 1. Hepatic steatosis. 2. Mild right hydronephrosis and proximal hydroureter may be due to an intermittently obstructing 15 mm calculus currently visualized in the right renal pelvis versus appearance due to recently passed r ight urinary tract calculus. There are bilateral renal nonobstructing calculi and left renal superior pole cortical scarring. Gas within the right renal collecting system and urinary bladder lumen may i ndicate infectious process. Correlate with urinalysis. 3. Colonic diverticulosis without evidence of acute diverticulitis. 4. Advanced lumbar degenerative disc disease and facet arthropathy. 5. No evidence of bowel obstruction, acute appendicitis, or other acute process in the abdomen or pel vis.
[2024-09-28] MEDS: ONDANSETRON HCL 4 MG/2 ML VIAL IV ONE (15:48)
[2024-09-28] MEDS: KETOROLAC TROMETH 30 MG/ML 1ML VIAL IV ONE (15:48)
[2024-09-28 17:31] LABS: Urine Bacteria FEW /hpf (None Seen); Urine Blood 2+ /uL (Negative); Urine Clarity Turbid (Clear); Urine Color Yellow (Yellow); Urine Protein, UAD 1+ (Negative); Urine Specific Gravity 1.023 (1.001-1.035); Urine Squamous Epithelial Cell FEW /hpf (<5); Urine Urobilinogen Normal (Negative); Urine WBC 579 /HPF (0-5); Urine WBC Clumps PRESENT /hpf (None Seen); Urine pH 5.5 (5.0-9.0)
[2024-09-28] MEDS: ACETAMINOPHEN 325 MG TAB PO ONE (19:15)
[2024-09-28] MEDS: LIDOCAINE 5% TOPICAL PATCH TOP ONE (19:15)
[2024-09-28 19:45] VITALS: PULSE 76; RESP 17; O2SAT 96
[2024-09-28] MEDS ORDERED: DOCUSATE SOD 100 MG CAP PO PRN (20:45)
[2024-09-28] MEDS ORDERED: ALBUTEROL SULF 2.5 MG/0.5ML(0.5%) NEB SOLN NEB PRN (20:45)
[2024-09-28] MEDS ORDERED: ACETAMINOPHEN 325 MG TAB PO PRN (20:45)
[2024-09-28] MEDS: levoFLOXacin 500MG 100 ML IV ONE (20:45)
[2024-09-28] MEDS ORDERED: IPRATROPIUM BROM 0.5 MG/2.5ML INH SOL NEB PRN (20:45)
[2024-09-28 21:12] VITALS: BP 142/72; PULSE 77; RESP 18; TEMP 98.5; O2SAT 97
[2024-09-28] MEDS ORDERED: MORPHINE SULFATE INJ 2 MG/ml SYRG IV PRN ×2 (21:30→23:00)
[2024-09-28] MEDS: MORPHINE SULFATE INJ 2 MG/ml SYRG ONE (21:34)
[2024-09-28] MEDS: FAMOTIDINE (10MG/ML) 2ML VL IV SCH (22:00)
[2024-09-28] MEDS: SODIUM CHLOR 0.9% PF (SALINE LOCK) 10ML VIAL/SYR IV SCH (22:00)
--- NOTE | 2024-09-28 22:58 | DVHHP2 ---
History of Present Illness Reason for Visit: Hydronephrosis History of Present Illness The patient is a 69-year-old female with past medical history of asthma, CVA, kidney stones, [place], PUD, and hypertension who presented to [facility] ED with complaint of back pain. Patient states, she has been experiencing lower lumbar back pain x4days, with associated symptoms of dysuria, burning upon urination, and melena. Patient reports, similar symptoms in the past when she had an obstructing kidney stone. Patient was seen and evaluated in the ED, laboratory data shows WBC 8.5, platelets 227, sodium 141, potassium 4.1, BUN 20, creatinine 0.97, GFR 64, glucose 100, calcium 9.3, blood pressure 142/72, heart rate 77, temperature 98.5 F, O2 saturation 97% on oxygen. Urinalysis positive for urinary tract infection. Abdomen/pelvis CT revealing mild right hydronephrosis and proximal hydroureteronephrosis be due to an intermittently obstructing 15 mm calculus currently visualized in the right renal pelvis versus appearance due to recently passed right urinary tract calculus; advanced lumbar degenerative disc disease and facet arthropathy. Patient was started on IV antibiotic regimen levofloxacin, please see medication orders section in the computer. On my assessment, patient denies chest pain, no headache, no dizziness, no diaphoresis, no shortness of breath, no nausea, no vomiting, no fever, no chills. Patient was admitted for further evaluation and medical ma nagement. Past Medical History Asthma, CVA, HTN, Kidney Stones, [place], PUD Past Surgical History Tonsillectomy Family History Reviewed, noncontributory to the management of this case. Past Social History The patient lives at home, quit smoking less than 1 year, drinks alcohol occasionally, denies illicit drugs abuse. Review of Systems Constitutional: Yes: Weakness; No: Fever, Chills, Sweats, Malaise, Other Eyes: No: Pain, Vision change, Conjunctivae inflammation, Eyelid inflammation, Other, Redness ENT: No: Ear pain, Ear discharge, Nose pain, Nose discharge, Nose congestion, Mouth pain, Mouth swelling, Throat pain, Throat swelling, Other Respiratory: No: Cough, Dry, Shortness of breath, SOB with excertion, Wheezing, Hemoptysis, Pleuritic Pain, Sputum, Wheezing, Other Cardiovascular: No: Chest Pain, Palpitations, Orthopnea, Paroxysmal Noc. Dyspnea, Edema, Lt Headedness, Other Gastrointestinal: Melena; No: Nausea, Vomiting, Abdominal Pain, Diarrhea, Constipation, Hematochezia, Other Genitourinary: Dysuria, Frequency; No Incontinence, No Hematuria, No Retention, No Other Musculoskeletal: back pain; No: other, neck pain, shoulder pain, arm pain, hand pain, leg pain, foot pain Skin: No: Rash, Lesions, Jaundice, Bruising, Other Neurological: No: Weakness, Numbness, Incoordination, Change in speech, Confusion, Seizures, Other Allergies: Coded Allergies: Penicillins (Verified Allergy, Unknown, 11/08/15) Medications Current Medications Medications Dose Ordered Sig/Satish Route Start Time Stop Time Status Last Admin Dose Admin Hydralazine HCl 10 mg Q6HP PRN IV 09/28/24 20:45 Levofloxacin/ Dextrose 100 ml @ 100 mls/hr DAILY@2100 IV 09/29/24 21:00 Albuterol 2.5 mg Q4HPRN PRN NEB 09/28/24 20:45 Ipratropium [place] 0.5 mg Q4HPRN PRN NEB 09/28/24 20:45 Aspirin 81 mg DAILY PO 09/29/24 10:00 Famotidine 20 mg Q12HR IV 09/28/24 22:00 Sodium Chloride 10 ml Q8HR IV 09/28/24 22:00 Acetaminophen/ Hydrocodone Bitart 1 tab Q4HP PRN PO 09/28/24 20:45 Ondansetron HCl 4 mg Q4HP PRN IV 09/28/24 20:45 Docusate Sodium 100 mg BIDPRN PRN PO 09/28/24 20:45 Acetaminophen 650 mg Q6HP PRN PO 09/28/24 20:45 Morphine Sulfate 2 mg Q4HPRN PRN IV 09/28/24 21:30 Exam Vital Signs Vital Signs Date Time Temp Pulse Resp B/P (MAP) Pulse Ox O2 Delivery O2 Flow Rate FiO2 09/28/24 21:12 98.5 77 18 142/72 97 98.5 09/28/24 13:37 Room Air* 0 21 General Appearance: Alert, Oriented X3, Cooperative, No acute distress HEENT: Atraumatic, PERRLA, EOMI, Mucous membr. moist/pink Respiratory: Clear to auscultation, Normal air movement Cardiovascular: Regular rate, Normal S1, Normal S2, No murmurs Abdominal: Normal bowel sounds, Soft, No tenderness, No hepatospenomegaly, No masses Extremities: No clubbing, No cyanosis, No edema, Normal pulses, No tenderness/swelling Skin: No rashes, No breakdown, No significant lesion Neuro: Normal speech, Normal tone, Sensation intact, Cranial nerves 3-12 NL, Reflexes 2+, Other (Generalized weakness) Psych/Mental Status: Mental status NL, Mood NL Labs/Xrays Labs Test 09/28/24 16:00 09/28/24 13:03 Range/Units Urine Color Yellow Yellow Urine Clarity Turbid H Clear Urine pH 5.5 5.0-9.0 Urine Specific [place] 1.023 1.001-1.035 Urine Protein 1+ H Negative Urine Ketones Negative Negative Urine Blood 2+ H Negative /uL Urine Nitrite Negative Negative Urine Bilirubin Negative Negative Urine Urobilinogen Normal Negative mg/dL Urine Leukocyte Esterase 3+ Negative /uL Urine RBC 84 0 - 4 /hpf Urine WBC Clumps Present None Seen /hpf Urine Microscopic WBC 579 H 0-5 /HPF Urine Squamous Epithelial Cells Few <5 /hpf Urine Bacteria Few H None Seen /hpf Urine Glucose Normal Normal mg/dL White Blood Count 8.5 4.4-10.8 10^3/uL Red Blood Count 4.39 4.0-5.20 10^6/uL Hemoglobin 13.7 12.2-16.2 g/dL Hematocrit 40.4 36.0-46.0 % Mean Corpuscular Volume 92.2 80.0-100.0 fL Mean Corpuscular Hemoglobin 31.3 28.0-32.0 pg Mean Corpuscular Hemoglobin Concent 33.9 32.0-36.0 g/dL Red Cell Distribution Width 14.6 H 11.8-14.3 % Platelet Count 227 140-450 10^3/uL Mean Platelet Volume 9.9 6.9-10.8 fL Neutrophils (%) (Auto) 63.6 37.0-80.0 % Lymphocytes (%) (Auto) 26.0 10.0-50.0 % Monocytes (%) (Auto) 7.7 0.0-12.0 % Eosinophils (%) (Auto) 1.6 0.0-7.0 % Basophils (%) (Auto) 1.1 0.0-2.0 % Neutrophils # (Auto) 5.4 1.6-8.6 10 ^3/uL Lymphocytes # (Auto) 2.2 0.4-5.4 10 ^3/uL Monocytes # (Auto) 0.7 0-1.3 10 ^3/uL Eosinophils # (Auto) 0.1 0-0.8 10 ^3/uL Basophils # (Auto) 0.1 0-0.2 10 ^3/uL Nucleated Red Blood Cells 0.2 % Sodium Level 141 136-145 mmol/L Potassium Level 4.1 3.5-5.1 mmol/L Chloride Level 108 H 98-107 mmol/L Carbon Dioxide Level 22 20-31 mmol/L Anion Gap 11 5-15 Blood Urea Nitrogen 20 9-23 mg/dL Creatinine 0.97 0.550-1.02 mg/dL Glomerular Filtration Rate Calc 64 >90 mL/min BUN/Creatinine Ratio 20.6 H 10.0-20.0 Serum Glucose 100 74-106 mg/dL Calcium Level 9.3 8.7-10.4 mg/dL PATIENT: ANJEL TRAN ACCT: [id number] UNIT: [id number] : 1955 LOC: ER ROOM / BED: / AGE / SEX: 69 / F ADM STATUS: REG ER SERVICE 1424 ORDERING PHYSICIAN: SANDHYA CRAWFORD MD PROCEDURE(s): ABPL - CT AB PEL WO CON-NO ORAL OR IV REASON: stone ORDER NUMBER(s): [id number], ACCESSION NUMBER(s): [id number] EXAM: CT CT AB PEL WO CON-NO ORAL OR IV HISTORY: stone COMPARISON: None TECHNIQUE: Helical CT images of the abdomen and pelvis were performed without IV contrast. Sagittal and coronal reformatted images were obtained. This CT exam was performed using one or more of the following dose reduction techniques: Automated exposure control, adjustment of the mA and/or kv according to patient size, or the use of iterative reconstruction techniques. Radiation Dose: Abdomen/Pelvis: CTDIvol 26.46 mGy, DLP 1204.05 mGy*cm. FINDINGS: CT abdomen: There is mild scarring or atelectasis in the lung bases. The heart is not enlarged. The liver is diffusely fatty density. There are bilateral renal nonobstructing calculi. There is mild right hydronephrosis and proximal hydroureter without visualization of obstructing distal ureteral calculi or urinary bladder calculi. There is a right renal pelvis 15 mm calculus which may be intermittently obstructing ( image 38, series 2). There is gas within the right renal collecting system and urinary bladder lumen. There is right renal superior pole cortical atrophy. The noncontrast spleen, gallbladder, pancreas, and adrenal glands are unremarkable. No abdominal aortic aneurysm. There are atherosclerotic calcifications of the abdominal aorta and major branches. There is supraumbilical rectus diastasis. CT pelvis: No abnormal bowel dilatation, free air, or free fluid. There are colonic diverticula without evidence of acute diverticulitis. The appendix is not dilated. There is mild right and severe left hip osteoarthritis. There is advanced lumbar degenerative disc disease and facet arthropathy with multilevel significant neural foraminal stenosis bilaterally. IMPRESSION: 1. Hepatic steatosis. 2. Mild right hydronephrosis and proximal hydroureter may be due to an intermittently obstructing 15 mm calculus currently visualized in the right renal pelvis versus appearance due to recently passed right urinary tract calculus. There are bilateral renal nonobstructing calculi and left renal superior pole cortical scarring. Gas within the right renal collecting system and urinary bladder lumen may indicate infectious process. Correlate with urinalysis. 3. Colonic diverticulosis without evidence of acute diverticulitis. 4. Advanced lumbar degenerative disc disease and facet arthropathy. 5. No evidence of bowel obstruction, acute appendicitis, or other acute process in the abdomen or pelvis. ORDERING PHYSICIAN: SANDHYA CRAWFORD MD PROCEDURE(s): CXRP - CHEST PORTABLE REASON: sob ORDER NUMBER(s): [id number], ACCESSION NUMBER(s): [id number] EXAM: XY CHEST PORTABLE REASON FOR EXAM: sob TECHNIQUE: 1 view of the chest COMPARISON: None FINDINGS/IMPRESSION: LUNGS: Low lung volumes with increased peripheral interstitial edema and decreased penetration likely related to overlying soft tissue. Correlate for volume overload. MEDIASTINUM: Mild cardiomegaly BONES: No acute osseous abnormality OTHER: None Assessment/Plan Assessment/Plan Renal colic on right side Essential hypertension Urinary tract infection Plan 1. Admit to med surge unit 2. Breathing treatment 3. Pain control management 4. IV antibiotic management 5. Management of fluids and electrolytes 6. Consultation for hospitalist 7. Diagnostic test abdomen/pelvis CT 8. DVT prophylaxis-on SCDs 9. Repeat labs CBC, CMP in a.m. 10. Home medication reviewed and reconciled 11. Continue with current medical management 12. Treatment plan discussed with patient and RN. Patient verbalized understanding. Plan discussed with: Patient, Other (RN) My Orders Orders - KAMINI CLARK DNP Procedure Category Date Status Time Urine Bacterial NEISHA 09/28/24 In Process Culture 20:34 Hydralazine Injection PHA 09/28/24 In Process (Apresoline Inject 20:45 Levofloxacin 500mg PHA 09/29/24 In Process (Levaquin 500mg/ 100m 21:00 * Urology Consult CONS 09/28/24 Transmitted 20:34 Albuterol Medneb PHA 09/28/24 In Process (Ventolin Medneb) 20:45 Ipratropium Medneb PHA 09/28/24 In Process (Atrovent Medneb) 20:45 Aspirin Tablet PHA 09/29/24 In Process 10:00 Famotidine Injection PHA 09/28/24 In Process (Pepcid Injection) 22:00 Allergies IAN 09/28/24 In Process 20:34 Code Status CODE 09/28/24 Transmitted 20:34 Sodium Chloride Lock PHA 09/28/24 In Process (Saline Lock Ns) 22:00 Oxygen Per Hour RT 09/28/24 Transmitted 20:34 Hydrocodone-Acet PHA 09/28/24 In Process 5/325mg Tab ([place] 20:45 Ondansetron Hcl PHA 09/28/24 In Process (Zofran) 20:45 Docusate Sodium PHA 09/28/24 In Process Capsule (Colace 20:45 Complete Blood Count LAB 09/29/24 Verified 04:00 Comprehensive LAB 09/29/24 Verified Metabolic Panel 04:00 Cardiac DIET 09/29/24 Transmitted Diet-2gna,Lofat,Lochol Breakfast Condition: Serious IAN 09/28/24 In Process 20:34 Acetaminophen Tablet PHA 09/28/24 In Process (Tylenol Tablet) 20:45 Bedrest With Bathroom IAN 09/28/24 In Process Privileg 20:34 Sequential IAN 09/28/24 In Process Compression Device Morphine Sulfate PHA 09/28/24 In Process Injection 21:30 Admit ADMIT 09/28/24 Transmitted 22:54 Nitroglycerin PHA 09/28/24 Transmitted Sublingual (Ntrostat 23:00 Morphine Sulfate PHA 09/28/24 Transmitted Injection 23:00 Notify Of Changes IAN 09/28/24 Transmitted From Base 22:54 Cloth Booker For [facility] 09/28/24 Transmitted 24 Hours 22:54 Emergency Dysrhythmia [facility] 09/28/24 Transmitted Protocol 22:54 Oxygen By Nasal RT 09/28/24 Transmitted Cannula 22:54 Problem List: (1) Renal colic on right side (2) Essential hypertension (3) UTI (urinary tract infection) Date of Service: September 28, 2024 Billing Provider: KAMINI CLARK DNP Common Visit Codes: [id number] INP/OBS CARE (HIGH) KAMINI CLARK DNP September 28, 2024 22:58
[2024-09-28] MEDS ORDERED: NITROGLYCERIN 0.4 MG SL TAB SL PRN (23:00)
[2024-09-29] VITALS (9 sets, daily range): BP systolic 142–171; BP diastolic 58–87; PULSE 72–83; RESP 18–20; TEMP 97.4–98.7; O2SAT 94–100
[2024-09-29] MEDS: ONDANSETRON HCL 4 MG/2 ML VIAL IV PRN (02:47)
[2024-09-29 06:20] LABS: Basophils # (auto) 0 10 ^3/uL (0-0.2); Basophils % (auto) 0.5 % (0.0-2.0); Eosinophils # (auto) 0.2 10 ^3/uL (0-0.8); Eosinophils % (auto) 2.7 % (0.0-7.0); Hematocrit 41.1 % (36.0-46.0); Hemoglobin 13.6 g/dL (12.2-16.2); Lymphocytes # (auto) 2.1 10 ^3/uL (0.4-5.4); Mean Corpuscular Hemoglobin 30.6 pg (28.0-32.0); Mean Corpuscular Hgb Conc. 33.1 g/dL (32.0-36.0); Mean Corpuscular Volume 92.6 fL (80.0-100.0); Monocytes # (auto) 0.8 10 ^3/uL (0-1.3); Neutrophils # (auto) 4.6 10 ^3/uL (1.6-8.6); Neutrophils % (auto) 59.8 % (37.0-80.0); Nucleated Red Blood Cells % 0.1 %; Platelet Count (auto) 221 10^3/uL (140-450); Red Blood Cells 4.44 10^6/uL (4.0-5.20); Red Cell Distribution Width 14.6 % (11.8-14.3); White Blood Cell 7.6 10^3/uL (4.4-10.8)
[2024-09-29 06:38] LABS: Alanine Aminotransferase 28 U/L (7-40); Alkaline Phosphatase 87 U/L (46-116); Anion Gap 12 (5-15); Blood Urea Nitrogen 13 mg/dL (9-23); Calcium 9.7 mg/dL (8.7-10.4); Carbon Dioxide 21 mmol/L (20-31); Glucose 103 mg/dL (74-106); Sodium 143 mmol/L (136-145); Total Protein 7.2 g/dL (5.7-8.2)
[2024-09-29 06:39] LABS: Albumin 4.3 g/dL (3.2-4.8); Aspartate Aminotransferase 16 U/L (13-40); Bilirubin, Total 0.5 mg/dL (0.2-1.0)
[2024-09-29 06:44] LABS: Chloride 110 mmol/L (98-107); Potassium 3.4 mmol/L (3.5-5.1)
[2024-09-29] MEDS: HYDROcodone-ACET 5/325MG TAB PO PRN (08:11)
[2024-09-29] MEDS: ASPirin 81 mg TAB PO SCH (10:49)
--- NOTE | 2024-09-29 12:23 | DVHPN2 ---
Subjective 69-year-old female with a history of multiple stones in the past, multiple procedures for kidney stones, history of asthma and CVA and hypertension, comes with chief complaint of left flank pain Evaluation here showed she has bilateral kidney stones and a 15 mm right kidney stone with mild right hydronephrosis She also has a UTI Changes from previous H/P or p: Changes Eyes: No Pain, No Vision change, No Conjunctivae inflammation, No Eyelid inflammation, No Other, No Redness ENT: No Ear pain, No Ear discharge, No Nose pain, No Nose discharge, No Nose congestion, No Mouth pain, No Mouth swelling, No Throat pain, No Throat swelling, No Other Cardiovascular: No Chest Pain, No Palpitations, No Orthopnea, No Paroxysmal Noc. Dyspnea, No Edema, No Lt Headedness, No Other Respiratory: No Cough, No Dry, No Shortness of breath, No SOB with excertion, No Wheezing, No Hemoptysis, No Pleuritic Pain, No Sputum, No Other Gastrointestinal: No Nausea, No Vomiting, No Abdominal Pain, No Diarrhea, No Constipation; Melena; No Hematochezia, No Other Genitourinary: Dysuria, Frequency; No Incontinence, No Hematuria, No Retention, No Other Musculoskeletal: No other, No neck pain, No shoulder pain, No arm pain; back pain; No hand pain, No leg pain, No foot pain Skin: No Rash, No Lesions, No Jaundice, No Bruising, No Other Objective Vitals Vital Signs Date Time Temp Pulse Resp B/P (MAP) Pulse Ox O2 Delivery O2 Flow Rate FiO2 09/29/24 09:00 97.6 83 19 142/75 (97) 98 97.6 09/29/24 08:00 Room Air* 0 21 Intake/Output Intake and Output 09/29/24 07:00 Intake Total 150 ml Balance 150 ml Intake Oral 0 ml IV Total 150 ml General Appearance: Alert, Oriented X3, Cooperative, No acute distress Lungs: Clear to auscultation, Normal air movement Cardiovascular: Regular rate, Normal S1 Abdomen: Normal bowel sounds, Soft Extremities: No edema Medications Current Medications Medications Dose Ordered Sig/Satish Route Start Time Stop Time Status Last Admin Dose Admin Hydralazine HCl 10 mg Q6HP PRN IV 09/28/24 20:45 Levofloxacin/ Dextrose 100 ml @ 100 mls/hr DAILY@2100 IV 09/29/24 21:00 Albuterol 2.5 mg Q4HPRN PRN NEB 09/28/24 20:45 Ipratropium [place] 0.5 mg Q4HPRN PRN NEB 09/28/24 20:45 Aspirin 81 mg DAILY PO 09/29/24 10:00 Famotidine 20 mg Q12HR IV 09/28/24 22:00 09/29/24 10:48 20 MG Sodium Chloride 10 ml Q8HR IV 09/28/24 22:00 09/29/24 06:00 10 ML Acetaminophen/ Hydrocodone Bitart 1 tab Q4HP PRN PO 09/28/24 20:45 09/29/24 08:11 1 TAB Ondansetron HCl 4 mg Q4HP PRN IV 09/28/24 20:45 09/29/24 02:47 4 MG Docusate Sodium 100 mg BIDPRN PRN PO 09/28/24 20:45 Acetaminophen 650 mg Q6HP PRN PO 09/28/24 20:45 Morphine Sulfate 2 mg Q4HPRN PRN IV 09/28/24 21:30 Nitroglycerin 0.4 mg Q5MINP PRN SL 09/28/24 23:00 Morphine Sulfate 2 mg Q30M PRN IV 09/28/24 23:00 Laboratory Results Laboratory Tests 09/29/24 05:16 Chemistry Test 09/28/24 13:03 09/29/24 05:16 Calcium Level 9.3 mg/dL (8.7-10.4) 9.7 mg/dL (8.7-10.4) Albumin 4.3 g/dL (3.2-4.8) Total Protein 7.2 g/dL (5.7-8.2) LFT Test 09/29/24 05:16 Alanine Aminotransferase (ALT) 28 U/L (7-40) Alkaline Phosphatase 87 U/L (46-116) Aspartate Amino Transferase (AST) 16 U/L (13-40) Total Bilirubin 0.5 mg/dL (0.2-1.0) Urinalysis Test 09/28/24 16:00 Urine Color Yellow (Yellow) Urine Clarity Turbid (Clear) H Urine pH 5.5 (5.0-9.0) Urine Specific [place] 1.023 (1.001-1.035) Urine Protein 1+ (Negative) H Urine Ketones Negative (Negative) Urine Blood 2+ /uL (Negative) H Urine Nitrite Negative (Negative) Urine Bilirubin Negative (Negative) Urine Urobilinogen Normal mg/dL (Negative) Urine Leukocyte Esterase 3+ /uL (Negative) Urine RBC 84 /hpf (0 - 4) Urine WBC Clumps Present /hpf (None Seen) Urine Microscopic WBC 579 /HPF (0-5) H Urine Squamous Epithelial Cells Few /hpf (<5) Urine Bacteria Few /hpf (None Seen) H Urine Glucose Normal mg/dL (Normal) Microbiology Microbiology Date/Time Source Procedure Growth Status 09/28/24 16:00 Voided Urine Urine Culture - Preliminary Resulted Assessment/Plan Assessment/Plan Bilateral nephrolithiasis Hypokalemia UTI Recurrent nephrolithiasis Right hydronephrosis with 15 mm stone Asthma History of CVA Hypertension Diverticulosis Plan Urology consult IV antibiotics Pain management as needed She says she takes Percocet at home Monitor closely Full code Advance directives discussed for 15 minutes Plan discussed with: Patient, Daughter My Orders Orders - WINSOME DUFF MD Procedure Category Date Status Time Oxycodone W/ Acet PHA 09/29/24 Verified 5/325mg Tab (Percocet 12:30 Date of Service: September 29, 2024 Billing Provider: WINSOME DUFF MD Common Visit Codes: [id number] INP/OBS CARE(HIGH) Secondary Visit Codes: [id number] CARE PLAN 30 MINUTES WINSOME DUFF MD September 29, 2024 12:23
[2024-09-29] MEDS: OXYCODONE W/ ACETAMINOPHEN 5/325MG TABLET PO PRN (16:31)
[2024-09-29] MEDS: POTASSIUM CHL 20 Meq TABLET PO ONE (16:31)
--- NOTE | 2024-09-29 16:32 | DVHINCON2 ---
Date of service: September 29, 2024 Referring Physician Bassam Reason for Consultation stones History of Present Illness admitted with left flank pain has long hx recurrant stones composition unknown;multiple eswls,percs over the years.denies hematuria,UTIs.no stone analysis as per pt Past Medical History reviewed Past Surgical History reviewed Family History: Cancer G8 MOTHER (BREAST CANCER) GRANDFATHER Family history: Cardiovascular disease G8 MOTHER (PACEMAKER) GRANDMOTHER (HEART ATTACK) Family history: Diabetes mellitus G8 MOTHER GRANDFATHER Seizure disorder (situation) G8 BROTHER Allergies: Coded Allergies: Penicillins (Verified Allergy, Unknown, 11/08/15) Home Meds Reported Medications Loratadine (Claritin) 10 Mg Tab, 1 TAB PO DAILY, #30 TAB 5 Refills 02/28/17 Carisoprodol (Soma) 350 Mg Tab, 350 MG PO TID, TAB 02/28/17 Gabapentin (Gabapentin) 300 Mg Cap, 1 CAP PO TID, #90 CAP 5 Refills 11/09/15 Omeprazole (HM OMEPRAZOLE) 20 Mg Tab, 40 MG PO DAILY, TAB 11/09/15 Ondansetron (Zofran) 4 Mg Tab, 4 MG PO Q8HPRN PRN for NAUSEA OR VOMITING, TAB 11/09/15 Fluticasone Propionate (Fluticasone Propionate) 0.05 % Cre, 50 MCG MIRYAM for 30 Days, MCG 11/09/15 Discontinued Reported Medications Cholecalciferol (VITAMIN D) 5,000 Unit Tab, 5000 UNIT OR DAILY, TAB 02/28/17 Cholecalciferol (VITAMIN D) 2,000 Unit Tab, 2000 UNIT PO DAILY, TAB 02/28/17 Hydrocodone-Acetaminophen (Hydrocodone/Acetaminophen) 1 Tab Tab, 1 TAB PO QID, #120 TAB 11/09/15 Seccbnyk-Atvzuiosx-Kv (Otic) (Antibiotic Ear) 1 % Ivonne, OT 11/09/15 Loratadine (Loratadine) 10 Mg Tab, 10 MG PO DAILY, TAB 11/09/15 Prednisolone Acetate (DARLIN-PRED) Meron, 1 OR 11/09/15 Current Medications Current Medications Medications (Trade) Dose Ordered Sig/Satish Route PRN Reason Start Time Stop Time Status Last Admin Hydralazine HCl (Apresoline Injection) 10 mg Q6HP PRN IV SBP>150 09/28/24 20:45 Levofloxacin/ Dextrose 100 ml @ 100 mls/hr DAILY@2100 IV 09/29/24 21:00 Albuterol (Ventolin Medneb) 2.5 mg Q4HPRN PRN NEB SHORTNESS OF BREATH 09/28/24 20:45 Ipratropium [place] (Atrovent Medneb) 0.5 mg Q4HPRN PRN NEB SHORTNESS OF BREATH 09/28/24 20:45 Aspirin 81 mg DAILY PO 09/29/24 10:00 09/29/24 12:20 DC Famotidine (Pepcid Injection) 20 mg Q12HR IV 09/28/24 22:00 09/29/24 10:48 Sodium Chloride (Saline Lock Ns) 10 ml Q8HR IV 09/28/24 22:00 09/29/24 06:00 Acetaminophen/ Hydrocodone Bitart ([place] 5/325MG Tab) 1 tab Q4HP PRN PO MODERATE PAIN (4-6 PAIN SCALE) 09/28/24 20:45 09/29/24 12:20 DC 09/29/24 08:11 Ondansetron HCl (Zofran) 4 mg Q4HP PRN IV NAUSEA / VOMITING 09/28/24 20:45 09/29/24 02:47 Docusate Sodium (Colace Capsule) 100 mg BIDPRN PRN PO FOR CONSTIPATION 09/28/24 20:45 Acetaminophen (Tylenol Tablet) 650 mg Q6HP PRN PO PAIN SCALE 1-3 OR TEMP>100.4 09/28/24 20:45 Morphine Sulfate 2 mg Q4HPRN PRN IV PAIN SCALE 7 THRU 10 09/28/24 21:30 Nitroglycerin (Ntrostat Sublingual) 0.4 mg Q5MINP PRN SL FOR CHEST PAIN 09/28/24 23:00 Morphine Sulfate 2 mg Q30M PRN IV FOR CHEST PAIN 09/28/24 23:00 Oxycodone/ Acetaminophen (Percocet 5/ 325MG Tablet) 2 tab Q6HP PRN PO SEVERE PAIN (7-10 PAIN SCALE) 09/29/24 12:30 Review of Systems reviewed Vital Signs Vital Signs Date Time Temp Pulse Resp B/P (MAP) Pulse Ox O2 Delivery O2 Flow Rate FiO2 09/29/24 13:00 97.8 80 20 171/70 (103) 97 97.8 09/29/24 08:00 Room Air* 0 21 Labs/Diagnostic Data Labs Test 09/29/24 05:16 09/28/24 16:00 Range/Units White Blood Count 7.6 4.4-10.8 10^3/uL Red Blood Count 4.44 4.0-5.20 10^6/uL Hemoglobin 13.6 12.2-16.2 g/dL Hematocrit 41.1 36.0-46.0 % Mean Corpuscular Volume 92.6 80.0-100.0 fL Mean Corpuscular Hemoglobin 30.6 28.0-32.0 pg Mean Corpuscular Hemoglobin Concent 33.1 32.0-36.0 g/dL Red Cell Distribution Width 14.6 H 11.8-14.3 % Platelet Count 221 140-450 10^3/uL Mean Platelet Volume 10.5 6.9-10.8 fL Neutrophils (%) (Auto) 59.8 37.0-80.0 % Lymphocytes (%) (Auto) 27.0 10.0-50.0 % Monocytes (%) (Auto) 10.0 0.0-12.0 % Eosinophils (%) (Auto) 2.7 0.0-7.0 % Basophils (%) (Auto) 0.5 0.0-2.0 % Neutrophils # (Auto) 4.6 1.6-8.6 10 ^3/uL Lymphocytes # (Auto) 2.1 0.4-5.4 10 ^3/uL Monocytes # (Auto) 0.8 0-1.3 10 ^3/uL Eosinophils # (Auto) 0.2 0-0.8 10 ^3/uL Basophils # (Auto) 0 0-0.2 10 ^3/uL Nucleated Red Blood Cells 0.1 % Sodium Level 143 136-145 mmol/L Potassium Level 3.4 L 3.5-5.1 mmol/L Chloride Level 110 H 98-107 mmol/L Carbon Dioxide Level 21 20-31 mmol/L Anion Gap 12 5-15 Blood Urea Nitrogen 13 9-23 mg/dL Creatinine 0.93 0.550-1.02 mg/dL Glomerular Filtration Rate Calc 67 >90 mL/min BUN/Creatinine Ratio 14.0 10.0-20.0 Serum Glucose 103 74-106 mg/dL Calcium Level 9.7 8.7-10.4 mg/dL Total Bilirubin 0.5 0.2-1.0 mg/dL Aspartate Amino Transferase (AST) 16 13-40 U/L Alanine Aminotransferase (ALT) 28 7-40 U/L Alkaline Phosphatase 87 46-116 U/L Total Protein 7.2 5.7-8.2 g/dL Albumin 4.3 3.2-4.8 g/dL Urine Color Yellow Yellow Urine Clarity Turbid H Clear Urine pH 5.5 5.0-9.0 Urine Specific [place] 1.023 1.001-1.035 Urine Protein 1+ H Negative Urine Ketones Negative Negative Urine Blood 2+ H Negative /uL Urine Nitrite Negative Negative Urine Bilirubin Negative Negative Urine Urobilinogen Normal Negative mg/dL Urine Leukocyte Esterase 3+ Negative /uL Urine RBC 84 0 - 4 /hpf Urine WBC Clumps Present None Seen /hpf Urine Microscopic WBC 579 H 0-5 /HPF Urine Squamous Epithelial Cells Few <5 /hpf Urine Bacteria Few H None Seen /hpf Urine Glucose Normal Normal mg/dL Microbiology Date/Time Source Procedure Growth Status 09/28/24 16:00 Voided Urine Urine Culture - Preliminary Resulted Assessment CT multiple stones both kidneys;multiple scars left kidney with possible cortical calcifications; non obstructing stones left pelvis; right kidney two large stones pelvis with mild hydro Plan/Recommendation pt can call my office after discharge for apt Plan discussed with: Patient BELA PRYOR MD September 29, 2024 16:32
[2024-09-29] MEDS: levoFLOXacin 500MG 100 ML IV SCH (22:41)
[2024-09-30] VITALS (8 sets, daily range): BP systolic 119–205; BP diastolic 55–90; PULSE 77–100; RESP 17–19; TEMP 97.3–98.1; O2SAT 97–100
[2024-09-30] MEDS: hydrALAZINE HCL 20 MG/ML VL IV PRN (06:40)
[2024-09-30 07:23] LABS: Anion Gap 10 (5-15); Calcium 10.2 mg/dL (8.7-10.4); Carbon Dioxide 22 mmol/L (20-31); Potassium 4.1 mmol/L (3.5-5.1); Sodium 142 mmol/L (136-145)
[2024-09-30 07:26] LABS: Chloride 110 mmol/L (98-107)
[2024-09-30 07:29] LABS: BUN/Creatinine Ratio 12.5 (10.0-20.0); Blood Urea Nitrogen 11 mg/dL (9-23); Glucose 106 mg/dL (74-106)
[2024-09-30] MEDS: hydrALAZINE HCL 20 MG/ML VL IV ONE (08:25)
[2024-09-30] MEDS: NIFEdipine ER 30 MG TAB PO SCH (08:26)
--- NOTE | 2024-09-30 12:20 | DVHPN2 ---
Subjective Doing well She is having some anxiety today Changes from previous H/P or p: Changes Eyes: No Pain, No Vision change, No Conjunctivae inflammation, No Eyelid inflammation, No Other, No Redness ENT: No Ear pain, No Ear discharge, No Nose pain, No Nose discharge, No Nose congestion, No Mouth pain, No Mouth swelling, No Throat pain, No Throat swelling, No Other Cardiovascular: No Chest Pain, No Palpitations, No Orthopnea, No Paroxysmal Noc. Dyspnea, No Edema, No Lt Headedness, No Other Respiratory: No Cough, No Dry, No Shortness of breath, No SOB with excertion, No Wheezing, No Hemoptysis, No Pleuritic Pain, No Sputum, No Other Gastrointestinal: No Nausea, No Vomiting, No Abdominal Pain, No Diarrhea, No Constipation; Melena; No Hematochezia, No Other Genitourinary: Dysuria, Frequency; No Incontinence, No Hematuria, No Retention, No Other Musculoskeletal: No other, No neck pain, No shoulder pain, No arm pain; back pain; No hand pain, No leg pain, No foot pain Skin: No Rash, No Lesions, No Jaundice, No Bruising, No Other Objective Vitals Vital Signs Date Time Temp Pulse Resp B/P (MAP) Pulse Ox O2 Delivery O2 Flow Rate FiO2 09/30/24 09:00 97.3 91 19 205/90 (128) 99 97.3 09/30/24 06:58 Room Air* 0 21 Intake/Output Intake and Output 09/30/24 07:00 Intake Total 1340 ml Balance 1340 ml Intake Oral 1240 ml IV Total 100 ml # Voids 2 General Appearance: Alert, Oriented X3, Cooperative, No acute distress Lungs: Clear to auscultation, Normal air movement Cardiovascular: Regular rate, Normal S1 Abdomen: Normal bowel sounds, Soft Extremities: No edema Medications Current Medications Medications Dose Ordered Sig/Satish Route Start Time Stop Time Status Last Admin Dose Admin Hydralazine HCl 10 mg Q6HP PRN IV 09/28/24 20:45 09/30/24 06:40 10 MG Levofloxacin/ Dextrose 100 ml @ 100 mls/hr DAILY@2100 IV 09/29/24 21:00 09/29/24 22:41 100 MLS/HR Albuterol 2.5 mg Q4HPRN PRN NEB 09/28/24 20:45 Ipratropium [place] 0.5 mg Q4HPRN PRN NEB 09/28/24 20:45 Famotidine 20 mg Q12HR IV 09/28/24 22:00 09/29/24 22:38 20 MG Sodium Chloride 10 ml Q8HR IV 09/28/24 22:00 09/30/24 06:40 10 ML Ondansetron HCl 4 mg Q4HP PRN IV 09/28/24 20:45 09/29/24 02:47 4 MG Docusate Sodium 100 mg BIDPRN PRN PO 09/28/24 20:45 Acetaminophen 650 mg Q6HP PRN PO 09/28/24 20:45 Morphine Sulfate 2 mg Q4HPRN PRN IV 09/28/24 21:30 Nitroglycerin 0.4 mg Q5MINP PRN SL 09/28/24 23:00 Morphine Sulfate 2 mg Q30M PRN IV 09/28/24 23:00 Oxycodone/ Acetaminophen 2 tab Q6HP PRN PO 09/29/24 12:30 09/30/24 08:43 2 TAB Nifedipine 90 mg DAILY PO 09/30/24 10:00 09/30/24 08:26 90 MG Laboratory Results Laboratory Tests 09/29/24 05:16 09/30/24 06:03 Chemistry Test 09/30/24 06:03 Calcium Level 10.2 mg/dL (8.7-10.4) Urinalysis Test 09/28/24 16:00 Urine Color Yellow (Yellow) Urine Clarity Turbid (Clear) H Urine pH 5.5 (5.0-9.0) Urine Specific [place] 1.023 (1.001-1.035) Urine Protein 1+ (Negative) H Urine Ketones Negative (Negative) Urine Blood 2+ /uL (Negative) H Urine Nitrite Negative (Negative) Urine Bilirubin Negative (Negative) Urine Urobilinogen Normal mg/dL (Negative) Urine Leukocyte Esterase 3+ /uL (Negative) Urine RBC 84 /hpf (0 - 4) Urine WBC Clumps Present /hpf (None Seen) Urine Microscopic WBC 579 /HPF (0-5) H Urine Squamous Epithelial Cells Few /hpf (<5) Urine Bacteria Few /hpf (None Seen) H Urine Glucose Normal mg/dL (Normal) Microbiology Microbiology Date/Time Source Procedure Growth Status 09/28/24 16:00 Voided Urine Urine Culture - Preliminary Resulted Assessment/Plan Assessment/Plan Bilateral nephrolithiasis Hypokalemia UTI Recurrent nephrolithiasis Right hydronephrosis with 15 mm stone Asthma History of CVA Hypertension Diverticulosis Anxiety Plan Urology consult IV antibiotics Pain management as needed She says she takes Percocet at home Monitor closely Full code Advance directives discussed for 15 minutes 09/30/2024: Anxiety: Start Xanax Continue IV antibiotics Urology consult appreciated Continue the current management Discharge planning for tomorrow to follow up with the Urology as an outpatient Plan discussed with: Patient My Orders Orders - WINSOME DUFF MD Procedure Category Date Status Time Oxycodone W/ Acet PHA 09/29/24 In Process 5/325mg Tab (Percocet 12:30 Date of Service: September 30, 2024 Billing Provider: WINSOME DUFF MD Common Visit Codes: [id number] INP/OBS CARE(HIGH) WINSOME DUFF MD September 30, 2024 12:20
[2024-09-30] MEDS: ALPRAZolam 0.25 MG TAB PO PRN (21:08)
[2024-10-01 01:00] VITALS: BP 111/53; PULSE 100; RESP 18; TEMP 97.8; O2SAT 98
[2024-10-01 05:00] VITALS: BP 138/68; PULSE 98; RESP 18; TEMP 97.4; O2SAT 97
[2024-10-01 06:40] VITALS: O2SAT 97
[2024-10-01 08:00] VITALS: PULSE 94; RESP 18; O2SAT 95
[2024-10-01 09:33] VITALS: BP 138/72; PULSE 83
[2024-10-01] MEDS ORDERED: LORA-622 PO (13:43)
[2024-10-01] MEDS ORDERED: ALPR0.25 PO (13:43)
[2024-10-01] MEDS ORDERED: NITR-87 PO (13:44)
--- NOTE | 2024-10-01 13:47 | DVHDS2 ---
Discharge Summary Date of Admission September 28, 2024 at 22:54 Date of Discharge: October 01, 2024 Labs/Diagnostic Data: Laboratory Results Test 09/30/24 06:03 09/29/24 05:16 09/28/24 16:00 Sodium Level 142 mmol/L (136-145) Potassium Level 4.1 mmol/L (3.5-5.1) Chloride Level 110 mmol/L (98-107) Carbon Dioxide Level 22 mmol/L (20-31) Anion Gap 10 (5-15) Blood Urea Nitrogen 11 mg/dL (9-23) Creatinine 0.88 mg/dL (0.550-1.02) Glomerular Filtration Rate Calc 72 mL/min (>90) BUN/Creatinine Ratio 12.5 (10.0-20.0) Serum Glucose 106 mg/dL (74-106) Calcium Level 10.2 mg/dL (8.7-10.4) White Blood Count 7.6 10^3/uL (4.4-10.8) Red Blood Count 4.44 10^6/uL (4.0-5.20) Hemoglobin 13.6 g/dL (12.2-16.2) Hematocrit 41.1 % (36.0-46.0) Mean Corpuscular Volume 92.6 fL (80.0-100.0) Mean Corpuscular Hemoglobin 30.6 pg (28.0-32.0) Mean Corpuscular Hemoglobin Concent 33.1 g/dL (32.0-36.0) Red Cell Distribution Width 14.6 % (11.8-14.3) Platelet Count 221 10^3/uL (140-450) Mean Platelet Volume 10.5 fL (6.9-10.8) Neutrophils (%) (Auto) 59.8 % (37.0-80.0) Lymphocytes (%) (Auto) 27.0 % (10.0-50.0) Monocytes (%) (Auto) 10.0 % (0.0-12.0) Eosinophils (%) (Auto) 2.7 % (0.0-7.0) Basophils (%) (Auto) 0.5 % (0.0-2.0) Neutrophils # (Auto) 4.6 10 ^3/uL (1.6-8.6) Lymphocytes # (Auto) 2.1 10 ^3/uL (0.4-5.4) Monocytes # (Auto) 0.8 10 ^3/uL (0-1.3) Eosinophils # (Auto) 0.2 10 ^3/uL (0-0.8) Basophils # (Auto) 0 10 ^3/uL (0-0.2) Nucleated Red Blood Cells 0.1 % Total Bilirubin 0.5 mg/dL (0.2-1.0) Aspartate Amino Transferase (AST) 16 U/L (13-40) Alanine Aminotransferase (ALT) 28 U/L (7-40) Alkaline Phosphatase 87 U/L (46-116) Total Protein 7.2 g/dL (5.7-8.2) Albumin 4.3 g/dL (3.2-4.8) Urine Color Yellow (Yellow) Urine Clarity Turbid (Clear) Urine pH 5.5 (5.0-9.0) Urine Specific [place] 1.023 (1.001-1.035) Urine Protein 1+ (Negative) Urine Ketones Negative (Negative) Urine Blood 2+ /uL (Negative) Urine Nitrite Negative (Negative) Urine Bilirubin Negative (Negative) Urine Urobilinogen Normal mg/dL (Negative) Urine Leukocyte Esterase 3+ /uL (Negative) Urine RBC 84 /hpf (0 - 4) Urine WBC Clumps Present /hpf (None Seen) Urine Microscopic WBC 579 /HPF (0-5) Urine Squamous Epithelial Cells Few /hpf (<5) Urine Bacteria Few /hpf (None Seen) Urine Glucose Normal mg/dL (Normal) Other Laboratory Tests 09/30/24 06:03 09/29/24 05:16 Brief Hx & Hospital Course: Final diagnoses: Bilateral nephrolithiasis Hypokalemia UTI Recurrent nephrolithiasis Right hydronephrosis with 15 mm stone Asthma History of CVA Hypertension Diverticulosis Anxiety 69-year-old female who was admitted due to left flank pain. Evaluation showed bilateral nephrolithiasis the biggest 1 on the right side however She was seen by Urology and was recommended to follow up as an outpatient The UTI was treated with IV levofloxacin She had anxiety which she was given Xanax for Overall she is doing better now and therefore she will be discharged home for outpatient follow up with Urology and with her primary care physician She will take Macrobid for 3 more days Xanax p.r.n. Loratadine 10 mg daily Resume the home medication Condition at Discharge: Stable Final Diagnosis/Problems List Bilateral nephrolithiasis Hypokalemia UTI Recurrent nephrolithiasis Right hydronephrosis with 15 mm stone Asthma History of CVA Hypertension Diverticulosis Anxiety Discharge Disposition: Home SNF Discharge Will this Physician continue t: No Discharge Instruct/Medications Diet: Cardiac 2g Na,low cholest Activity: No Restrictions, As Tolerated Follow Up/Referral: PCP as soon as possible Dr. Arevalo as soon as possible Medications: Macrobid for 3 days Xanax p.r.n. Loratadine 10 mg daily Resume the home medications Discharge Statement: "Patient was advised to return to the ER or call 911 if any headaches, dizziness, shortness of breath, chest pain, abdominal pain, bleeding, fevers, or worsening of medical condition. Patient was counseled about treatment plan, medications, possible side effects, patientverbalized understanding. All questions were answered to the best of my ability. This discharge took greater then 30 minutes in planning, reviewing documentation, counseling the patient, and discussing with other team members." ASSESSMENT ASSESSMENT Assessment Bilateral nephrolithiasis Hypokalemia UTI Recurrent nephrolithiasis Right hydronephrosis with 15 mm stone Asthma History of CVA Hypertension Diverticulosis Anxiety Date of Service: October 01, 2024 Billing Provider: WINSOME DUFF MD Common Visit Codes: [id number] DISCH DAY >30min WINSOME DUFF MD October 01, 2024 13:47
[2024-10-01 14:23] VITALS: TEMP 36.3
[2024-10-01] MEDS: LORATADINE 10 MG TAB PO ONE (14:50)
== END 2024-10-01 14:51 | disposition home or self-care (01) | DRG 690 ==
LOC: EDBD 11:25 → ER 11:25 → OVERFLOW 22:54 → WEST WING 09-29 02:52
PROVIDERS: ADMIT Internal Medicine Geriatric Medicine; ATTEND Internal Medicine Geriatric Medicine
DX: N13.6 Pyonephrosis (principal); N20.0 Calculus of kidney; E87.6 Hypokalemia; I10 Essential (primary) hypertension; K57.30 Diverticulosis of large intestine without perforation or abscess without bleeding; J45.909 Unspecified asthma, uncomplicated; F41.9 Anxiety disorder, unspecified; Z86.73 Personal history of transient ischemic attack (TIA), and cerebral infarction without residual deficits; Z88.0 Allergy status to penicillin; Z79.899 Other long term (current) drug therapy; Z87.11 Personal history of peptic ulcer disease; Z87.891 Personal history of nicotine dependence; Z83.3 Family history of diabetes mellitus; Z82.49 Family history of ischemic heart disease and other diseases of the circulatory system; Z82.0 Family history of epilepsy and other diseases of the nervous system; Z80.3 Family history of malignant neoplasm of breast
CPT/HCPCS: 36415; 71045; 74176; 80048; 80053; 81001; 85025; 87086; 96361; 96374; 96375; G0378; J1885; J1956; J2405; J3490